=== PATIENT | male | born 1980 ===

== ENCOUNTER 2024-06-29 08:39 | Outpatient (CLI) | payer BC, SELFPAY ==
--- NOTE | ~2024-06-29 | US_ITS ---
EXAMINATION: US scrotum doppler DATE: 06/29/2024 09:02 INDICATION: Testicular mass TECHNIQUE: Testicular sonogram utilizing grayscale and Doppler COMPARISON: None. FINDINGS: The right testis measures 4.8 x 2.2 x 3.5 cm. The left testis measures 3.9 x 2.4 x 3.2 cm. Symmetric normal grayscale appearance to both testes. There is normal vascular flow to both testes. The right e pididymis is normal with normal vascular flow. What is imaged and designated as the left epididymal t ail on the provided images appears enlarged and hyperemic which could be seen with epididymitis. On t he few of the images however the course of the epididymis appears to extend along the more superficia l margin of the testis and is only incompletely imaged. What is designated as the left TRESSA was. More likely to represent a redundant loop of the spermatic cord extending into the scrotum. This likely re presents the reported left testicular mass. There is no varicocele or hydrocele. IMPRESSION: 1. Left testicular mass appears to represent either an enlarged and hyperemic left epididymis sugges tive setting of epididymitis or more likely a redundant loop of the spermatic cord extending into the scrotum. 2. Normal bilateral testes. Reviewed, dictated and finalized at location A. [facility] IMPRESSION: 1. Left testicular mass appears to represent either an enlarged and hyperemic left epididymis suggestive setting of epididymitis or more likely a redundant l oop of the spermatic cord extending into the scrotum. 2. Normal bilateral testes.
== END 2024-06-29 08:40 | disposition home or self-care (01) ==
PROVIDERS: PCP Family Medicine; Visit Provider Registered Nurse
DX: N50.89 Other specified disorders of the male genital organs (principal)
CPT/HCPCS: 76870; 93976